=== PATIENT | male | born 1975 | race African-American/Black ===

== ENCOUNTER 2020-09-22 22:22 | Emergency (ER) | payer OTHER ==
[2020-09-22 22:41] VITALS: TEMP 98.2; BMI 29.9
[2020-09-23] MEDS ORDERED: SODIUM CHLORIDE 0.9% 500 ML INFUS.BAG IV ONE (00:10)
[2020-09-23] MEDS ORDERED: MECLIZINE HCL 25 MG TABLET (FP) PO ONE (00:10)
[2020-09-23] MEDS ORDERED: MECLIZINE HCL 25 MG TABLET (FP) ONE (00:49)
[2020-09-23] MEDS ORDERED: ACETAMINOPHEN 1000 MG/100 ML VIAL (NON FORMULARY) IVPB ONE (00:56)
[2020-09-23] MEDS ORDERED: ACETAMINOPHEN INJECTION 100 ML IVPB ONE (00:59)
[2020-09-23 01:01] LABS: BASO % 1.1 % (0-2.0); EOS % 3.4 % (0-4.5); HEMATOCRIT 46.9 % (35.4-49); HEMOGLOBIN 15.3 GM/dL (11.7-16.9); LYMPH % 50.6 % (8-40); MCH 26.1 pg (25.7-33.7); MCHC 32.6 g/dl (32.0-35.9); MEAN PLT VOLUME 7.7 fl (7.5-11.1); MONO % 6.6 % (3.8-10.2); NEUT % 38.3 % (42.8-82.8); PLATELET COUNT 226 K/MM3 (134-434); RBC 5.86 M/mm3 (4.00-5.60); RDW 14.5 % (11.9-15.9); WHITE BLOOD COUNT 8.9 K/mm3 (4.0-10.0)
[2020-09-23 01:24] LABS: CHLORIDE 101 mmol/L (98-107); POTASSIUM 4.8 mmol/L (3.5-5.1); SODIUM 138 mmol/L (136-145)
[2020-09-23 01:26] LABS: ALBUMIN 3.9 g/dl (3.4-5.0); ANION GAP 6 MMOL/L (8-16); BLOOD UREA NITROGEN 12.2 mg/dL (7-18); CALCIUM 9.2 mg/dL (8.5-10.1); CO2 31 mmol/L (21-32); GLUCOSE,RANDOM 109 mg/dL (74-106)
[2020-09-23 01:29] LABS: SGOT/AST 32 U/L (15-37); SGPT/ALT 39 U/L (13-61)
[2020-09-23 01:31] LABS: BILIRUBIN,TOTAL 0.7 mg/dL (0.2-1); TOT PROT 7.8 g/dl (6.4-8.2)
[2020-09-23 01:32] LABS: ALK PHOS 69 U/L (45-117)
[2020-09-23 04:11] VITALS: BP 160/100; PULSE 69
== END 2020-09-23 03:10 | disposition home or self-care (01) ==
LOC: JER 22:22
PROC: 3E033NZ Introduction of Analgesics, Hypnotics, Sedatives into Peripheral Vein, Percutaneous Approach (ICD-10-PCS; principal; 2020-09-23)
DX: R42 Dizziness and giddiness (principal)
CPT/HCPCS: 36415; 70450-TC; 71045-TC-FY; 80053; 82550; 82553; 84484; 85025; 93005; 93010; 99284-25; J0131